=== PATIENT | female | born 1990 | race Caucasian/White ===

== ENCOUNTER 2016-09-26 18:30 | Emergency (ER) | payer SELFPAY ==
[2016-09-27 03:00] LABS: HEMOGLOBIN 11.6 gm/dl (12.3-15.3); RED BLOOD COUNT 3.76 M/UL (4.00-5.10); WHITE BLOOD COUNT 7.7 K/UL (4.5-11.0)
[2016-09-27 03:16] LABS: BUN/CREATININE RATIO 22 (0-10)
== END 2016-09-27 05:15 | disposition home or self-care (01) ==
LOC: ER1 18:30
PROVIDERS: Physician Assistant
DX: N76.0 Acute vaginitis (principal); B96.89 Other specified bacterial agents as the cause of diseases classified elsewhere
CPT/HCPCS: 36415; 80053; 81001; 83690; 84703; 85025; 87086; 87210; 96361; 96374; 96375; 99284; J1885; J2405; J2765; J7030